=== PATIENT | male | born 1960 | race Caucasian/White ===

== ENCOUNTER 2018-09-08 13:06 | Outpatient (REF) | payer SELFPAY ==
[2018-09-08 21:34] LABS: Hemoglobin A1C 5.8 % (4.5-6.2)
[2018-09-08 22:17] LABS: Cholesterol 266 mg/dL (50-200); HDL Cholesterol 30 mg/dL (40-60); LDL CHOLESTEROL 171 mg/dL (<100); TSH (W/Ref FT4) 1.33 uIU/mL (0.358-3.74); Triglyceride 448 mg/dL (30-150); Vitamin B12 500 pg/mL (193-986)
[2018-09-11 06:41] LABS: Vitamin D 25 Total 14.3 ng/ml (30-100)
== END 2018-09-08 13:26 ==
LOC: NCHCN 13:06
PROVIDERS: PCP Family Medicine; Visit Provider Family Medicine
DX: E78.6 Lipoprotein deficiency (principal); R25.1 Tremor, unspecified; R20.2 Paresthesia of skin; R42 Dizziness and giddiness; R53.83 Other fatigue
CPT/HCPCS: 80061; 82306; 83721; 82607; 83036; 84443

== ENCOUNTER 2019-09-13 08:48 | Outpatient (REF) | payer SELFPAY ==
[2019-09-13 20:30] LABS: ALT 37 U/L (16-63); AST 28 U/L (15-37); Albumin 3.7 g/dL (3.4-5.0); Alkaline Phosphatase 55 U/L (46-116); Anion Gap 8.8 mmol/L (3-11); BUN 22 mg/dL (7-18); Bilirubin, Total 0.5 mg/dL (0.2-1.0); CO2 27.2 mmol/L (21.0-32.0); CREATININE 1.31 mg/dL (0.70-1.30); Calcium 8.9 mg/dL (8.5-10.1); Calculated LDL 186 mg/dL (<100); Chloride 103 mmol/L (98-107); Cholesterol 274 mg/dL (<200); Estimated GFR 56.01 (mL/min/1.73m2); Glucose 91 mg/dL (74-106); HDL Cholesterol 29 mg/dL (40-60); Hemoglobin A1C 5.9 % (3.8-5.6); Potassium 4.8 mmol/L (3.5-5.1); Sodium 139 mmol/L (136-145); Total Protein 7.6 g/dL (6.4-8.2); Triglyceride 297 mg/dL (<150)
[2019-09-13 20:47] LABS: Vitamin D 25 Total 15.6 ng/ml (30-100)
== END 2019-09-13 09:08 ==
LOC: NCHCN 08:48
PROVIDERS: PCP Family Medicine; Visit Provider Family Medicine
DX: E78.6 Lipoprotein deficiency (principal); R53.83 Other fatigue; N28.9 Disorder of kidney and ureter, unspecified; I10 Essential (primary) hypertension; E78.5 Hyperlipidemia, unspecified; E16.2 Hypoglycemia, unspecified
CPT/HCPCS: 80053; 80061; 82306; 83036

== ENCOUNTER 2019-12-21 10:44 | Outpatient (REF) | payer SELFPAY ==
[2019-12-21 22:03] LABS: Hemoglobin A1C 5.6 % (3.8-5.6)
[2019-12-21 22:21] LABS: ALT 52 U/L (16-63); AST 26 U/L (15-37); Albumin 3.8 g/dL (3.4-5.0); Alkaline Phosphatase 51 U/L (46-116); Anion Gap 11.2 mmol/L (3-11); BUN 22 mg/dL (7-18); Bilirubin, Total 0.3 mg/dL (0.2-1.0); CO2 22.8 mmol/L (21.0-32.0); CREATININE 1.22 mg/dL (0.70-1.30); Calcium 9.5 mg/dL (8.5-10.1); Calculated LDL 174 mg/dL (<100); Chloride 103 mmol/L (98-107); Cholesterol 265 mg/dL (<200); Glucose 102 mg/dL (74-106); HDL Cholesterol 30 mg/dL (40-60); Potassium 4.6 mmol/L (3.5-5.1); Sodium 137 mmol/L (136-145); Total Protein 7.4 g/dL (6.4-8.2); Triglyceride 306 mg/dL (<150); Vitamin B12 476 pg/mL (193-986)
== END 2019-12-21 11:04 ==
LOC: NCHCN 10:44
PROVIDERS: PCP Family Medicine; Visit Provider Family Medicine
DX: E55.9 Vitamin D deficiency, unspecified (principal); E78.5 Hyperlipidemia, unspecified; E88.81 Metabolic syndrome and other insulin resistance; R20.2 Paresthesia of skin; M54.2 Cervicalgia; R25.1 Tremor, unspecified; R90.89 Other abnormal findings on diagnostic imaging of central nervous system; R42 Dizziness and giddiness
CPT/HCPCS: 80053; 80061; 82306; 82607; 83036

== ENCOUNTER 2020-06-17 14:42 | Outpatient (REF) | payer OTHER, SELFPAY ==
[2020-06-17 13:53] LABS: ALT 37 U/L (16-63); AST 17 U/L (15-37); Albumin 3.9 g/dL (3.4-5.0); Alkaline Phosphatase 53 U/L (46-116); Anion Gap 7.9 mmol/L (3-11); BUN 22 mg/dL (7-18); Bilirubin, Total 0.6 mg/dL (0.2-1.0); CO2 25.1 mmol/L (21.0-32.0); CREATININE 1.25 mg/dL (0.70-1.30); Calcium 8.8 mg/dL (8.5-10.1); Calculated LDL 143 mg/dL (<100); Chloride 106 mmol/L (98-107); Cholesterol 218 mg/dL (<200); Estimated GFR 59.12 (mL/min/1.73m2); Glucose 92 mg/dL (74-106); HDL Cholesterol 30 mg/dL (40-60); Potassium 4.9 mmol/L (3.5-5.1); Sodium 139 mmol/L (136-145); Total Protein 7.6 g/dL (6.4-8.2); Triglyceride 226 mg/dL (<150)
[2020-06-17 14:42] LABS: Hemoglobin A1C 5.8 % (<5.7)
[2020-06-19 05:00] LABS: Vitamin D 25 Total 38.5 ng/ml (30-100)
== END 2020-06-17 15:02 ==
LOC: NCHCN 14:42
PROVIDERS: PCP Family Medicine; Visit Provider Family Medicine
DX: R73.03 Prediabetes (principal); E55.9 Vitamin D deficiency, unspecified; E88.81 Metabolic syndrome and other insulin resistance; E78.6 Lipoprotein deficiency; I10 Essential (primary) hypertension
CPT/HCPCS: 80053; 80061; 82306; 83036

== ENCOUNTER 2021-05-26 16:51 | Outpatient (REF) | payer OTHER, SELFPAY ==
[2021-05-26 21:58] LABS: Hemoglobin A1C 5.5 % (<5.7)
[2021-05-28 00:47] LABS: Vitamin D 25 Total 43.2 ng/mL (30-100)
== END 2021-05-26 16:52 | disposition home or self-care (01) ==
LOC: NCHCN 16:51
PROVIDERS: PCP Family Medicine; Visit Provider Family Medicine
DX: R73.03 Prediabetes (principal); E55.9 Vitamin D deficiency, unspecified
CPT/HCPCS: 82306; 83036

== ENCOUNTER 2022-01-05 14:56 | Outpatient (REF) | payer SELFPAY ==
[2022-01-05 15:28] LABS: ALT 27 U/L (16-63); AST 17 U/L (15-37); Albumin 3.8 g/dL (3.4-5.0); Alkaline Phosphatase 50 U/L (46-116); Anion Gap 7.1 mmol/L (3-11); BUN 19 mg/dL (7-18); Bilirubin, Total 0.5 mg/dL (0.2-1.0); CO2 26.9 mmol/L (21.0-32.0); CREATININE 1.1 mg/dL (0.70-1.30); Calcium 9.1 mg/dL (8.5-10.1); Calculated LDL 170 mg/dL (<100); Chloride 105 mmol/L (98-107); Cholesterol 250 mg/dL (<200); Glucose 97 mg/dL (74-106); HDL Cholesterol 38 mg/dL (40-60); Potassium 4.7 mmol/L (3.5-5.1); Sodium 139 mmol/L (136-145); Total Protein 7.5 g/dL (6.4-8.2); Triglyceride 212 mg/dL (<150)
[2022-01-05 15:59] LABS: Hemoglobin A1C 5.5 % (<5.7)
== END 2022-01-05 14:57 | disposition home or self-care (01) ==
LOC: NCHCN 14:56
PROVIDERS: PCP Family Medicine; Visit Provider Family Medicine
DX: E78.5 Hyperlipidemia, unspecified (principal); R73.03 Prediabetes; E78.6 Lipoprotein deficiency; Z00.00 Encounter for general adult medical examination without abnormal findings; I10 Essential (primary) hypertension
CPT/HCPCS: 80053; 80061; 83036

== ENCOUNTER 2022-07-09 10:10 | Outpatient (REF) | payer SELFPAY ==
--- OUTSIDE RECORDS SUMMARY | 2022-07-09 10:18 | XMS_ITS | CCD ---
:1960 Author Care Team Providers Name Role Phone STEPHY GUZMAN Attending Physician Unavailable STEPHY GUZMAN Er Physician 1 Unavailable HAYLEY Denis Registered Nurse Unavailable Vital Signs Vital Sign Value Unit Date/Time Recent/Initial? BMI (Body Mass Index) 25.84 kg/m^2 04/29/2022 03:29 In itial VS Weight Measured 175 lbs 04/29/2022 03:29 Initial VS Height 69 in 04/29/2022 03:29 Initial VS BSA (Body Surface Area) 1.97 m^2 04/29/2022 03:29 Initial VS BP Systolic 155 mmHg 04/29/2022 03:29 Initial VS BP Diastolic 102 mmHg 04/29/2022 03:29 Initial VS Respiratory Rate 18 bpm 04/29/2022 03:29 Initial VS Heart Rate 54 bpm 04/29/2022 03:29 Initial VS O2 % BldC Oximetry 95 % 04/29/2022 03:29 Initi al VS Body Temperature 35.3 degrees 04/29/2022 03:29 Initial VS BP Systolic 137 mmHg 04/29/2022 05:15 Most Recent VS BP Diastolic 83 mmHg 04/29/2022 05:15 Most Recent VS Respiratory Rate 18 bpm 04/29/2022 05:15 Most Re cent VS Heart Rate 48 bpm 04/29/2022 05:15 Most Recent VS O2 % BldC Oximetry 91 % 04/29/2022 05:15 Most Recent VS Allergies Unknown or Not Available. Procedures Unknown or Not Available. History of Immunizations Unknown or Not Available. Problems Problem Code Start Date Resolved Date Status HTN [id number] Active HTN 60643115 04/29/2022 Resolved High cholesterol 90004227 04/29/2022 Resolved Anxiety 04462459 06/05/2022 Resolved Results BNP (PRO-B NATRIURETIC PEPTIDE) - [facility] Date/Time: 04/29/2022 03:25 Test Name Code Test Result Test Units Test Ref Range NT-proBNP 00687-3 73.0 pg/mL L=0.0 H=125 COMPREHENSIVE METABOLIC PANEL (CMP) - Co llect Date/Time: 04/29/2022 03:25 Test Name Code Test Result Test Units Test Ref Range GLUCOSE 2345-7 100 mg/dL L=70 H=116 BUN 3094-0 15 mg/dL L=6 H=25 CREATININE 2160-0 1.10 mg/dL L=0.67 H=1.17 SODIUM SERUM 2951-2 140 mmol/L L=136 H=145 POTASSIUM SERUM 2823-3 4.3 mmol/L L=3.4 H=5.2 CHLORIDE SERUM 2075-0 106 mmol/L L=96 H=110 CARBON DIOXIDE (CO2) 2028-9 27 mmol/L L=22 H= 34 ANION GAP 61616-3 7.5 mmol/L CALCIUM SERUM 76458-9 8.6 mg/dL L=8.2 H=10.2 BILIRUBIN TOTAL 1975-2 0.4 mg/dL L=0.0 H=1.3 ALK. PHOS. 6768-6 51 U/L L=46 H=116 SGOT (AST) 1920-8 19 U/L L=15 H=37 SGPT (ALT) 1742-6 29 U/L L=12 H=78 TOTAL PROTEIN 2885-2 7.5 gm/dL L=6.0 H=8.0 ALBUMIN 1751-7 3.6 gm/dL L=3.4 H=5.0 AGE 61 years eGFR (non-Afr.Amer.) 19440-1 68 mL/min eGFR (Afr-Grenadian) 81813-0 82 mL/min TROPONIN HIGH SENSITIVITY* - Collect Fran e/Time: 04/29/2022 04:25 Test Name Code Test Result Test Units Test Ref Range TROPONIN HS 7.8 pg/mL L=0.0 H=60.4 Specimen seq. 1 HOUR N/A TROPONIN HIGH SENSITIVITY* - Collect Fran e/Time: 04/29/2022 03:25 Test Name Code Test Result Test Units Test Ref Range TROPONIN HS 8.0 pg/mL L=0.0 H=60.4 Specimen seq. RANDOM N/A CBC W/ DIFFERENTIAL* - Collect Date/Time : 04/29/2022 03:25 Test Name Code Test Result Test Units Test Ref Range WBC 6690-2 7.85 th/cmm L=5.00 H=10.00 NEUT % 61.4 % L=40.0 H=80.0 LYMPH % 25.9 % L=10.0 H=50.0 MONO % 69794-2 8.3 % L=2.0 H=12.0 EOS % 3.1 % L=0.0 H=8.0 BASO % 0.8 % L=0.0 H=3.0 IG % 2514-8 0.5 % L=0.0 H=1.1 NRBC % 75462-3 0.0 % L=0.0 H=0.0 NEUT abs count 751-8 4.8 th/cmm L=1.6 H=8.4 LYMPH abs count 731-0 2.0 th/cmm L=1.5 H=4.0 MONO abs count 742-7 0.7 th/cmm L=0.2 H=1.0 EOS abs count 711-2 0.2 th/cmm L=0.0 H=0.5 BASO abs count 704-7 0.1 th/cmm L=0.0 H=0.2 IG abs count 49164-0 0.0 th/cmm L=0.0 H=0.1 NRBC abs count 81901-0 0.0 mil/cmm L=0.0 H=0.0 RBC 789-8 4.86 mil/cmm L=4.30 H=6.20 HEMOGLOBIN 718-7 15.0 gm/dL L=13.0 H=17.0 HEMATOCRIT 4544-3 44 % L=45 H=52 MCV 787-2 91 fL L=82 H=92 MCH 785-6 30.9 pg L=27.0 H=31.0 MCHC 786-4 34.0 % L=32.0 H=36.0 RDW-SD 788-0 43.8 fL L=39.0 H=49.0 PLATELET COUNT 777-3 142 th/cmm L=150 H=450 Active Medications Medication Code Dose Units Frequency Route Modification Start Date/Time NITROGLYCERIN 942560 0.4 MG PRN Q5MIN SL 04/29/20 22 TABLET SL (25CT): 03:43 0.4MG Medications Administered During Visit Medication Dose Units Frequency Route Date/Time of L ast Dose ASPIRIN TABLET CHEWABLE: 81MG 324 MG X1 CHEW 04/29/2022 03:39 NITROGLYCERIN TABLET SL 0.4 MG PRN Q5MIN SL 1 06/29/2021 03:47 (25CT): 0.4MG Encounters Encounter Diagnosis Diagnosis Code Start Date Other chest pain R0789 04/29/2022 Social History Smoking Status Code Start Date End Date Former smoker [id number] 06/13/1983 06/13/2009 Patient Decision Aids Unknown or Not Available. Discharge Instructions You were admitted to [facility] on 04/29/2022 03:20 with a principal diagnosis of Other chest pain You had the following tests done: TROPO ZURI HIGH SENSITIVITY* BNP (PRO-B NATRIURETIC PEPTIDE) CBC W/ DIFFERENTIAL* COMPREHENS SKYLA METABOLIC PANEL (CMP) TROPONIN HIGH SENSITIVITY* You were discharged from [facility] on 04/29/2022 05:31 Should you have any questions prior to d ischarge, please contact a member of your healthcare team. If you have left the ho spital and have any questions, please contact your primary care physician. Chief Complaint and Reason For Visit Chief Complaint Date of Onset CHEST PAIN Function Status Unknown or Not Available. Plan of Care Unknown or Not Available. Referral/Transition of Care Unknown or Not Available.
--- OUTSIDE RECORDS SUMMARY | 2022-07-09 10:18 | XMS_ITS | CCD ---
:1960 Author Care Team Providers Name Role Phone KATERINA CAM Attending Physician Unavailable KATERINA CAM (Secondary) Physician Unavailab walsh Vital Signs Unknown or Not Available. Allergies Unknown or Not Available. Procedures Unknown or Not Available. History of Immunizations Unknown or Not Available. Problems Problem Code Start Date Resolved Date Status HTN 91488834 Active Anxiety 01098878 06/05/2022 Resolved Results Unknown or Not Available. Active Medications Medication Code Dose Units Frequency Route Modification Start Date/Time Atorvastatin 186878 40 MILLIGRAMS DAILY ORAL 08/21/19 19 Calcium 40MG 21:16 Oral Tablet Prescription Detail TAKE 40 MILLIGRAMS ORAL LISETTE Y Medications Administered During Visit Unknown or Not Available. Encounters Encounter Diagnosis Diagnosis Code Start Date Chest pain 86856171 05/11/2022 Social History Smoking Status Code Start Date End Date Former smoker [id number] 06/13/1983 06/13/2009 Patient Decision Aids Unknown or Not Available. Discharge Instructions You were admitted to [facility] on 05/11/2022 15:45 with a principal diagnosis of Chest pain, unspecified You were discharged from [facility] on 05/11/2022 00:00 Should you have any questions prior to d ischarge, please contact a member of your healthcare team. If you have left the spital and have any questions, please contact your primary care physician. Chief Complaint and Reason For Visit Unknown or Not Available. Function Status Unknown or Not Available. Plan of Care Unknown or Not Available. Referral/Transition of Care Unknown or Not Available.
--- OUTSIDE RECORDS SUMMARY | 2022-07-09 10:19 | XMS_ITS | CCD ---
:1960 Author Care Team Providers Name Role Phone KATERINA CAM Attending Physician Unavailable KATERINA CAM (Secondary) Physician Unavailab nico Vital Signs Unknown or Not Available. Allergies Allergy Code Allergy Type Reaction Status No Known Allergies 0 No known allergies Act emmanuelle Procedures Unknown or Not Available. History of Immunizations Unknown or Not Available. Problems Problem Code Start Date Resolved Date Status HTN 56978782 Active Results Unknown or Not Available. Active Medications Medication Code Dose Units Frequency Route Modification Start Date/Time Atorvastatin 633408 40 MILLIGRAMS DAILY ORAL 08/21/19 19 Calcium 40MG 21:16 Oral Tablet Prescription Detail TAKE 40 MILLIGRAMS ORAL LISETTE Y Medications Administered During Visit Unknown or Not Available. Encounters Unknown or Not Available. Social History Smoking Status Code Start Date End Date Former smoker [id number] 06/13/1983 06/13/2009 Patient Decision Aids Unknown or Not Available. Discharge Instructions You were admitted to [facility] on 06/24/2022 12:40 You were discharged from [facility] on 06/24/2022 00:00 Should you have any questions prior [...]
--- OUTSIDE RECORDS SUMMARY | 2022-07-09 10:19 | XMS_ITS | CCD ---
:1960 Author Care Team Providers Name Role Phone JOEL BOND Attending Physician Unavailable Vital Signs Unknown or Not Available. Allergies Unknown or Not Available. Procedures Unknown or Not Available. History of Immunizations Unknown or Not Available. Problems Problem Code Start Date Resolved Date Status HTN 94755593 Active Results Unknown or Not Available. Active Medications Medication Code Dose Units Frequency Route Modification Start Date/Time Atorvastatin 684014 40 MILLIGRAMS DAILY ORAL 08/21/19 19 Calcium 40MG 21:16 Oral Tablet Prescription Detail TAKE 40 MILLIGRAMS ORAL LISETTE Y Medications Administered During Visit Unknown or Not Available. Encounters Encounter Diagnosis Diagnosis Code Start Date Encounter for screening for malignant neoplasm of Z122 06/18/2022 respiratory organs Social History Smoking Status Code Start Date End Date Former smoker [id number] 06/13/1983 06/13/2009 Patient Decision Aids Unknown or Not Available. Discharge Instructions You were admitted to [facility] on 06/18/2022 13:01 with a principal diagnosis of Encounter for screening for malignant neoplasm of respiratory organs You were discharged from [facility] on 06/18/2022 13:01 Should you have any questions prior to d ischarge, please contact a member of your healthcare team. If you have left the ho spital and have any questions, please contact your primary care physician. Chief Complaint and Reason For Visit Chief Complaint Date of Onset LDCT - HX SMOKING Function Status Unknown or Not Available. Plan of Care Unknown or Not Available. Referral/Transition of Care Unknown or Not Available.
--- OUTSIDE RECORDS SUMMARY | 2022-07-09 10:19 | XMS_ITS | CCD ---
:1960 Author Care Team Providers Name Role Phone MARTÍNEZ GAGE Attending Physician Unavailable VANIA HUTTON Er Physician 1 Unavailable HAYLEY Denis Registered Nurse Unavailable CORDELIA Billings Registered Nurse Unavailable Vital Signs Vital Sign Value Unit Date/Time Recent/Initial? BMI (Body Mass Index) 25.99 kg/m^2 06/25/2022 17:31 In itial VS Weight Measured 176 lbs 06/25/2022 17:31 Initial VS Height 69 in 06/25/2022 17:31 Initial VS BSA (Body Surface Area) 1.97 m^2 06/25/2022 17:31 Initial VS BP Systolic 185 mmHg 06/25/2022 17:31 Initial VS BP Diastolic 113 mmHg 06/25/2022 17:31 Initial VS Respiratory Rate 18 bpm 06/25/2022 17:31 Initial VS Heart Rate 57 bpm 06/25/2022 17:31 Initial VS O2 % BldC Oximetry 98 % 06/25/2022 17:31 Initi al VS Body Temperature 35 degrees 06/25/2022 17:31 Initial VS BP Systolic 129 mmHg 06/25/2022 22:09 Most Recent VS BP Diastolic 90 mmHg 06/25/2022 22:09 Most Recent VS Respiratory Rate 12 bpm 06/25/2022 22:09 Most Re cent VS Heart Rate 54 bpm 06/25/2022 22:09 Most Recent VS O2 % BldC Oximetry 97 % 06/25/2022 22:09 Most Recent VS Allergies Allergy Code Allergy Type Reaction Status No Known Allergies 0 No known allergies Act emmanuelle Procedures Unknown or Not Available. History of Immunizations Unknown or Not Available. Problems Problem Code Start Date Resolved Date Status HTN 55071691 Active Results BASIC METABOLIC PANEL (BMP) - Collect Da te/Time: 06/25/2022 17:33 Test Name Code Test Result Test Units Test Ref Range GLUCOSE 2345-7 101 mg/dL L=70 H=116 BUN 3094-0 15 mg/dL L=6 H=25 CREATININE 2160-0 1.24 mg/dL L=0.67 H=1.17 SODIUM SERUM 2951-2 139 mmol/L L=136 H=145 POTASSIUM SERUM 2823-3 4.1 mmol/L L=3.4 H=5.2 CHLORIDE SERUM 2075-0 103 mmol/L L=96 H=110 CARBON DIOXIDE (CO2) 2028-9 29 mmol/L L=22 H= 34 ANION GAP 35083-2 6.9 mmol/L CALCIUM SERUM 99865-6 9.7 mg/dL L=8.2 H=10.2 AGE 61 years eGFR (non-Afr.Amer.) 86217-2 59 mL/min eGFR (Afr-Chinese) 81631-1 72 mL/min TROPONIN HIGH SENSITIVITY* - Collect Fran e/Time: 06/25/2022 17:33 Test Name Code Test Result Test Units Test Ref Range TROPONIN HS 9.2 pg/mL L=0.0 H=60.4 Specimen seq. ADM. N/A CBC W/ DIFFERENTIAL* - Collect Date/Time : 06/25/2022 17:33 Test Name Code Test Result Test Units Test Ref Range WBC 6690-2 9.15 th/cmm L=5.00 H=10.00 NEUT % 63.5 % L=40.0 H=80.0 LYMPH % 25.1 % L=10.0 H=50.0 MONO % 24717-3 7.0 % L=2.0 H=12.0 EOS % 3.1 % L=0.0 H=8.0 BASO % 0.9 % L=0.0 H=3.0 IG % 2514-8 0.4 % L=0.0 H=1.1 NRBC % 97108-3 0.0 % L=0.0 H=0.0 NEUT abs count 751-8 5.8 th/cmm L=1.6 H=8.4 LYMPH abs count 731-0 2.3 th/cmm L=1.5 H=4.0 MONO abs count 742-7 0.6 th/cmm L=0.2 H=1.0 EOS abs count 711-2 0.3 th/cmm L=0.0 H=0.5 BASO abs count 704-7 0.1 th/cmm L=0.0 H=0.2 IG abs count 46121-4 0.0 th/cmm L=0.0 H=0.1 NRBC abs count 97558-1 0.0 mil/cmm L=0.0 H=0.0 RBC 789-8 5.06 mil/cmm L=4.30 H=6.20 HEMOGLOBIN 718-7 15.4 gm/dL L=13.0 H=17.0 HEMATOCRIT 4544-3 46 % L=45 H=52 MCV 787-2 90 fL L=82 H=92 MCH 785-6 30.4 pg L=27.0 H=31.0 MCHC 786-4 33.8 % L=32.0 H=36.0 RDW-SD 788-0 42.8 fL L=39.0 H=49.0 PLATELET COUNT 777-3 174 th/cmm L=150 H=450 D-DIMER - Collect Date/Time: 06/25/2022 17:33 Test Name Code Test Result Test Units Test Ref Range D-DIMER 46634-3 3.35 mg/L L=0.19 H=0.50 Active Medications Unknown or Not Available. Medications Administered During Visit Medication Dose Units Frequency Route Date/Time of L ast Dose SODIUM CHLORIDE 0.9% 1000ML 1000 ML X1 IV 06/25/2022 18:55 Encounters Encounter Diagnosis Diagnosis Code Start Date Essential hypertension 49702117 06/25/2022 Social History Smoking Status Code Start Date End Date Former smoker [id number] 06/13/1983 06/13/2009 Patient Decision Aids Unknown or Not Available. Discharge Instructions You were admitted to [facility] on 06/25/2022 17:23 with a principal diagnosis of Essential (primary) hypertension You had the following tests done: BASIC METABOLIC PANEL (BMP) CBC W/ DIFFERENTIAL* D-DIMER TROPONIN HIGH SENSITIVITY* You were discharged from [facility] on 06/25/2022 22:12 Should you have any questions prior to d ischarge, please contact a member of your healthcare team. If you have left the spital and have any questions, please contact your primary care physician. Chief Complaint and Reason For Visit Chief Complaint Date of Onset CHEST PAIN AND BLOOD PRESSURE PROBLEM Function Status Unknown or Not Available. Plan of Care Unknown or Not Available. Referral/Transition of Care Unknown or Not Available.
--- OUTSIDE RECORDS SUMMARY | 2022-07-09 10:19 | XMS_ITS | CCD ---
:1960 Author Care Team Providers Name Role Phone KATERINA CAM Attending Physician Unavailable KATERINA CAM (Secondary) Physician Unavailab walsh Vital Signs Unknown or Not Available. Allergies Unknown or Not Available. Procedures Unknown or Not Available. History of Immunizations Unknown or Not Available. Problems Problem Code Start Date Resolved Date Status HTN 15202005 Active Results Unknown or Not Available. Active Medications Medication Code Dose Units Frequency Route Modification Start Date/Time Atorvastatin 082305 40 MILLIGRAMS DAILY ORAL 08/21/19 19 Calcium 40MG 21:16 Oral Tablet Prescription Detail TAKE 40 MILLIGRAMS ORAL LISETTE Y Medications Administered During Visit Unknown or Not Available. Encounters Unknown or Not Available. Social History Smoking Status Code Start Date End Date Former smoker [id number] 06/13/1983 06/13/2009 Patient Decision Aids Unknown or Not Available. Discharge Instructions You were admitted to [facility] on 06/17/2022 09:33 You were discharged from [facility] on 06/17/2022 00:00 Should you have any questions prior [...]
--- OUTSIDE RECORDS SUMMARY | 2022-07-09 10:19 | XMS_ITS | CCD ---
:1960 Author Care Team Providers Name Role Phone JOEL BOND Attending Physician Unavailable Vital Signs Unknown or Not Available. Allergies Allergy Code Allergy Type Reaction Status No Known Allergies 0 No known allergies Act emmanuelle Procedures Unknown or Not Available. History of Immunizations Unknown or Not Available. Problems Problem Code Start Date Resolved Date Status HTN 83250109 Active Results Unknown or Not Available. Active Medications Medication Code Dose Units Frequency Route Modification Start Date/Time Atorvastatin 648140 40 MILLIGRAMS DAILY ORAL 08/21/19 19 Calcium 40MG 21:16 Oral Tablet Prescription Detail TAKE 40 MILLIGRAMS ORAL LISETTE Y Medications Administered During Visit Unknown or Not Available. Encounters Unknown or Not Available. Social History Smoking Status Code Start Date End Date Former smoker [id number] 06/13/1983 06/13/2009 Patient Decision Aids Unknown or Not Available. Discharge Instructions You were admitted to [facility] on 07/06/2022 09:27 You were discharged from [facility] on 07/06/2022 09:27 Should you have any questions prior to d ischarge, please contact a member of your healthcare team. If you have left the ho spital and have any questions, please contact your primary care physician. Chief Complaint and Reason For Visit Chief Complaint Date of Onset ABNORMAL ABD FINDINGS Function Status Unknown or Not Available. Plan of Care Unknown or Not Available. Referral/Transition of Care Unknown or Not Available.
--- OUTSIDE RECORDS SUMMARY | 2022-07-09 10:20 | XMS_ITS | CCD ---
:1960 Author Care Team Providers Name Role Phone LEEANNA OROZCO Attending Physician Unavailable LEEANNA OROZCO Rounding (Secondary) Physician Unavailab le Vital Signs Unknown or Not Available. Allergies Unknown or Not Available. Procedures Unknown or Not Available. History of Immunizations Unknown or Not Available. Problems Problem Code Start Date Resolved Date Status HTN 85600378 Active HTN 01246790 04/29/2022 Resolved High cholesterol 77861276 04/29/2022 Resolved Anxiety 53166640 06/05/2022 Resolved Results Unknown or Not Available. Active Medications Medication Code Dose Units Frequency Route Modification Start Date/Time Atorvastatin 828271 40 MILLIGRAMS DAILY ORAL 08/21/19 19 Calcium 40MG 21:16 Oral Tablet Prescription Detail TAKE 40 MILLIGRAMS ORAL LISETTE Y Medications Administered During Visit Unknown or Not Available. Encounters Encounter Diagnosis Diagnosis Code Start Date Refusal of treatment by patient [id number] 05/20/20 21 Social History Smoking Status Code Start Date End Date Former smoker [id number] 06/13/1983 06/13/2009 Patient Decision Aids Unknown or Not Available. Discharge Instructions You were admitted to [facility] on 05/20/2021 14:16 with a principal diagnosis of Procedure and treatment not carried o ut because of patient's decision for other reasons You were discharged from [facility] on 05/20/2021 00:00 Should you have any questions prior [...]
--- OUTSIDE RECORDS SUMMARY | 2022-07-09 10:20 | XMS_ITS | CCD ---
:1960 Author Care Team Providers Name Role Phone VIRY ENCINAS Attending Physician Unavailable Vital Signs Unknown or Not Available. Allergies Unknown or Not Available. Procedures Unknown or Not Available. History of Immunizations Unknown or Not Available. Problems Problem Code Start Date Resolved Date Status HTN 89295495 Active HTN 44118212 04/29/2022 Resolved High cholesterol 17717700 04/29/2022 Resolved Anxiety 19639336 06/05/2022 Resolved Results AILYN COVID RHEONIX* - Collect Date/Abhi e: 05/29/2021 09:49 Test Name Code Test Result Test Units Test Ref Range SOURCE= Anterior nasal N/A Tier- SYMPTOMS N/A SARS COV2 RNA: 09996-7 NEGATIVE N/A REFERENCE RAN GE: NEGAT Active Medications Medication Code Dose Units Frequency Route Modification Start Date/Time Atorvastatin 327474 40 MILLIGRAMS DAILY ORAL 08/21/19 19 Calcium 40MG 21:16 Oral Tablet Prescription Detail TAKE 40 MILLIGRAMS ORAL LISETTE Y Medications Administered During Visit Unknown or Not Available. Encounters Encounter Diagnosis Diagnosis Code Start Date Exposure to SARS-CoV-2 077096062 05/29/2021 Social History Smoking Status Code Start Date End Date Former smoker [id number] 06/13/1983 06/13/2009 Patient Decision Aids Unknown or Not Available. Discharge Instructions You were admitted to [facility] on 05/29/2021 20:59 with a principal diagnosis of Contact with and (suspected) exposure to COVID-19 You had the following tests done: COPLE Y COVID RHEONIX* You were discharged from [facility] on 05/29/2021 20:59 Should you have any questions prior to [...]
--- OUTSIDE RECORDS SUMMARY | 2022-07-09 10:20 | XMS_ITS | CCD ---
:1960 Author Care Team Providers Name Role Phone DAE MAE Attending Physician Unavailable DAE MAE Rounding (Secondary) Physician Unavailab le Vital Signs Unknown or Not Available. Allergies Unknown or Not Available. Procedures Unknown or Not Available. History of Immunizations Unknown or Not Available. Problems Problem Code Start Date Resolved Date Status HTN 09571836 Active HTN 04562189 04/29/2022 Resolved High cholesterol 98992360 04/29/2022 Resolved Anxiety 78760030 06/05/2022 Resolved Results Unknown or Not Available. Active Medications Medication Code Dose Units Frequency Route Modification Start Date/Time Atorvastatin 559965 40 MILLIGRAMS DAILY ORAL 08/21/19 19 Calcium 40MG 21:16 Oral Tablet Prescription Detail TAKE 40 MILLIGRAMS ORAL LISETTE Y Medications Administered During Visit Unknown or Not Available. Encounters Encounter Diagnosis Diagnosis Code Start Date Hallux valgus (acquired), left foot M2012 04/13 Social History Smoking Status Code Start Date End Date Former smoker [id number] 06/13/1983 06/13/2009 Patient Decision Aids Unknown or Not Available. Discharge Instructions You were admitted to [facility] on 04/22/2021 08:22 with a principal diagnosis of Hallux valgus (acquired), left foot You were discharged from [facility] on 04/22/2021 00:00 Should you have any questions prior [...]
[2022-07-12 10:07] LABS: PSA, Screening 3.8 ng/mL (<=4.5)
== END 2022-07-09 10:11 | disposition home or self-care (01) ==
LOC: NCHCN 10:10
PROVIDERS: PCP Family Medicine; Visit Provider Family Medicine
DX: Z12.5 Encounter for screening for malignant neoplasm of prostate (principal)
CPT/HCPCS: 84153

== ENCOUNTER 2023-09-29 16:31 | Outpatient (REF) | payer OTHER, SELFPAY ==
[2023-09-29 16:03] LABS: Abs Immature Grans 0.02 10^3/uL (0.0-0.06); Absolute Basophil Count 0.05 10^3/uL (0.0-0.2); Absolute Eosinophil Count 0.15 10^3/uL (0.0-0.7); Absolute Lymphocyte Count 1.34 10^3/uL (1.2-3.4); Absolute Monocyte Count 0.38 10^3/uL (0.1-0.8); Absolute Neutrophil Count 4.78 10^3/uL (1.2-6.7); Basophils % 0.7; Eosinophils % 2.2; HCT 45.3 % (40.0-50.0); Immature Grans % 0.3; Lymphocytes % 19.9; MCH 29.8 pg (27.0-33.0); MCHC 33.1 % (32.0-36.0); MCV 90 fL (80-95); MPV 11.3 fL (8.0-11.0); Monocytes % 5.7; Neutrophils % 71.2; Platelet Count 161 10^3/uL (130-400); RBC 5.03 10^6/uL (4.36-5.78); RDW 13.9 % (11.8-14.1); RDW-SD 45.8 fL; WBC 6.72 10^3/uL (4.4-10.8)
[2023-09-29 16:46] LABS: ALT 46 U/L (16-63); AST 26 U/L (15-37); Albumin 3.9 g/dL (3.4-5.0); Anion Gap 10.2 mmol/L (3-11); BUN 19 mg/dL (7-18); Bilirubin, Total 0.4 mg/dL (0.2-1.0); CO2 21.8 mmol/L (21.0-32.0); CREATININE 1.1 mg/dL (0.70-1.30); Calcium 8.9 mg/dL (8.5-10.1); Chloride 108 mmol/L (98-107); Estimated GFR 75.43 (mL/min/1.73m2); Glucose 97 mg/dL (74-106); Potassium 4.4 mmol/L (3.5-5.1); Sodium 140 mmol/L (136-145); Total Protein 7.5 g/dL (6.4-8.2)
[2023-09-29 17:07] LABS: Hemoglobin A1C 5.7 % (<5.7)
[2023-09-29 17:14] LABS: Alkaline Phosphatase 54 U/L (46-116)
[2023-09-29 18:04] LABS: Vitamin D 25 Total 33.3 ng/mL (30-100)
[2023-09-29 23:32] LABS: PSA, Screening 3.2 ng/mL (<=4.5)
== END 2023-09-29 16:32 | disposition home or self-care (01) ==
LOC: NCHCN 16:31
PROVIDERS: PCP Family Medicine; Visit Provider Family Medicine
DX: E78.5 Hyperlipidemia, unspecified (principal); R73.03 Prediabetes; E55.9 Vitamin D deficiency, unspecified; R16.1 Splenomegaly, not elsewhere classified; Z12.5 Encounter for screening for malignant neoplasm of prostate
CPT/HCPCS: 80053; 82306; 84153; 83036; 85025

== ENCOUNTER 2023-12-06 13:56 | Outpatient (REF) | payer OTHER, SELFPAY ==
[2023-12-06 15:01] LABS: Calculated LDL 135 mg/dL (<100); Cholesterol 242 mg/dL (<200); HDL Cholesterol 40 mg/dL (40-60); Triglyceride 335 mg/dL (<150)
== END 2023-12-06 13:57 | disposition home or self-care (01) ==
LOC: NCHCN 13:56
PROVIDERS: PCP Family Medicine; Visit Provider Family Medicine
DX: E78.5 Hyperlipidemia, unspecified (principal)
CPT/HCPCS: 80061